=== PATIENT | male | born 2000 | race Two or more races ===

== ENCOUNTER 2022-06-02 15:38 | Emergency (ER) | payer SELFPAY ==
[2022-06-02] MEDS ORDERED: Boostrix 0.5 ML (Tdap) VIAL ONE (16:41)
== END 2022-06-02 16:59 | disposition home or self-care (01) ==
LOC: ERS 15:38
DX: S00.81XA Abrasion of other part of head, initial encounter (principal); W19.XXXA Unspecified fall, initial encounter
CPT/HCPCS: 90471; 90715